=== PATIENT | male | born 1975 | race Caucasian/White ===

== ENCOUNTER 2024-07-18 16:56 | Emergency (ER) | payer OTHER ==
[~2024-07-18] VITALS: Ht 170.2 cm; Wt 95.2 kg
[2024-07-18] MEDS ORDERED: Prinivil5 MG PO (17:58)
== END 2024-07-18 18:08 | disposition home or self-care (01) ==
LOC: ER 16:56
DX: S63.501A Unspecified sprain of right wrist, initial encounter (principal); Z98.890 Other specified postprocedural states; W19.XXXA Unspecified fall, initial encounter
CPT/HCPCS: 73090; 99283-25